=== PATIENT | female | born 1965 | race Caucasian/White ===

== ENCOUNTER → 2021-02-23 15:15 | Outpatient (CLI) | payer OTHER, SELFPAY ==
--- NOTE | 2021-02-23 15:21 | RAD_ITS ---
STUDY: X-RAY CHEST REASON FOR EXAM: Female, 56 years old. SHORTNESS OF BREATH TECHNIQUE: 1 view COMPARISON: None. FINDINGS: Moderate hyperexpansion without consolidation, focal atelectasis or pleural effusion. There is no demonstrated pleural abnormality. Normal size heart. Normal mediastinum and ortiz. Normal visualized pulmonary arteries. Normal visualized aortic arch and descending thoracic aorta. Normal visualized thoracic spine. Normal visualized ribs, clavicles, and shoulders. There is no demonstrated abnormality of the visualized soft tissue structures of the upper abdomen. RAD/Chest PA and Lateral IMPRESSION: Hyperexpansion consistent with acute or chronic obstructive airways disease without other acute cardiopulmonary findings. Electronically Signed: Rufina Nava MD at 15:49 EDT , Service support ,
== END ==
PROVIDERS: PCP Family Medicine; Referring Provider Internal Medicine Pulmonary Disease; Visit Provider Internal Medicine Pulmonary Disease
DX: R06.00 Dyspnea, unspecified (principal)
CPT/HCPCS: 36415; 71046; 86769

== ENCOUNTER → 2021-10-19 14:51 | Outpatient (CLI) | payer OTHER, SELFPAY ==
[2021-10-19 17:42] LABS: Estradiol 13.4 pg/mL
[2021-10-19 17:46] LABS: Progesterone Level 0.86 ng/mL (See Comment)
[2021-10-21 16:22] LABS: DHEA Sulfate 34.7 ug/dL (29.4-220.5)
== END ==
PROVIDERS: PCP Family Medicine; Visit Provider Obstetrics & Gynecology
DX: N95.1 Menopausal and female climacteric states (principal)
CPT/HCPCS: 36415; 82627; 82670; 84144; 84403; 82626